=== PATIENT | female | born 1970 | race Asian ===

== ENCOUNTER → 2017-04-16 | Outpatient (CLI) | payer BC | END | disposition home or self-care (01) | LOC: PCVCIMAG 16:43 | PROVIDERS: ATTEND Internal Medicine | DX: Z01.810 Encounter for preprocedural cardiovascular examination (principal); R00.2 Palpitations | CPT/HCPCS: 80061; 93005; 93306; G0463 ==

== ENCOUNTER → 2017-07-03 | Outpatient (CLI) | payer BC ==
[~2017-07-03] MED LIST: REGADENOSON 0.4 MG/5 ML DISP.SYRIN. IV ONE
--- NOTE | 2017-07-06 17:57 | PCVCIMAG ---
APPROVED REPORT Exam: Nuclear Stress Test Indication: Palpitations , Chest pain Patient Location: Out-Patient Stress Nurse: Grisel Escobedo RN, Alyssa Dillard RN MD Tech:Nadine Richardsconsuelo [facility] Ht: 5 ft 2 in Wt: 118 lbs BSA: 1.53 m2 HR: 77 bpm BP: 148/92 mmHg BMI: 21.5 Rhythm: SR Medical History Medical History: Hyperlipidemia, HTN Medications: Losartan Allergies: No known drug allergies Pretest Chest Pain Characteristics: No chest pain Exercise History: Physically active Physical Disabilities: Recovering from Surgery NM EXAM: Myocardial Perfusion REST/STRESS Imaging Protocol: Rest Tc-99m/Stress Tc-99m 1 day Resting Data Rest SPECT myocardial perfusion imaging was performed in supine position 45 minutes following the intravenous injection of 8.5 mCi of Tc-99m Sestamibi. Time of rest injection: 944 Date: 07/03/2017 Pharmacologic Stress Pharmacologic stress test was performed by injecting Regadenoson 0.4 mg IV push followed by the intravenous injection of 25.2 mCi of Tc-99m Sestamibi. Time of stress injection: 0 Date: 07/03/2017 Administration Route: IV Administration Site: Right AC Gated Stress SPECT was performed 45 minutes after stress injection. The images were gated to evaluate regional wall motion and calculate left ventricular ejection fraction. Study Data Post stress, the left ventricular ejection was 75%.. SSS: 1 SRS: 0 SDS: 1 TID = 1.03. Perfusion There is a small area of mildly reduced uptake in the apical segment of the anterior wall which is seen on the stress images as well as the resting images. This area thickens and moves normally and is most consistent with attenuation artifact. Nuclear Conclusion 1. LOW RISK STUDY Interpreted by: Mendoza Segovia MD Electronically Approved: 07/06/2017 17:56:50 Stress Test Details Stress Test: Pharmacologic stress was paired with low level exercise. Reason for pharmacologic stress test: physical limitation. HR Resting HR: 77 bpmMax Heart Rate (APMHR): 173 bpm Max HR Achieved: 137 bpmTarget HR (85% APMHR): 147 bpm % of APMHR: 79 Recovery HR: 97 bpm BP Resting BP: 148/92 mmHg Max BP: 148/78 mmHg Recovery BP: 151/89 mmHg ECG Resting ECG: Sinus Rhythm Stress ECG: Sinus Tachycardia Recovery ECG: Sinus Rhythm Clinical Reason for Termination: Completed protocol Stress Symptoms: Dyspnea, Nausea, Light-Headed Exercise duration: 4 min 00 sec Symptoms resolved with caffeine. Stress ECG Conclusion 1. ADEQUATE RESPONSE TO IV LEXISCAN 2. INADEQUATE HEART RATE FOR ECG DIAGNOSIS <Conclusion> 1. ADEQUATE RESPONSE TO IV LEXISCAN 2. INADEQUATE HEART RATE FOR ECG DIAGNOSIS
== END | disposition home or self-care (01) ==
LOC: PCVCIMAG 09:21
PROVIDERS: ATTEND Internal Medicine
DX: I10 Essential (primary) hypertension (principal); E78.5 Hyperlipidemia, unspecified; R00.0 Tachycardia, unspecified
CPT/HCPCS: 78452; 93017; A9500; J2785